=== PATIENT | male | born 2000 | race Caucasian/White ===

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

== ENCOUNTER 2019-01-25 12:28 | Emergency (ER) | payer BC ==
[2019-01-25 13:05] VITALS: BP 128/64
--- NOTE | 2019-01-25 13:40 | UC ---
UC General HPI - HPI Summary HPI Summary: 18-year-old male comes in with a chief complaint of bipolar. Patient has a long history of being bipolar with primarily aggressive phases. He was living in [place] and bit on about different medications that he doesn't really remember which ones. He does know he is on gabapentin any did not like the side effects and also lithium he did not like. Last 2 days he's been feeling more aggressive although he says he feels much call her at this time. Denies any suicidality or wanting to hurt anybody. He has a counselor locally but does not have a physician. - History of Current Complaint Chief Complaint: UCGeneralIllness Stated Complaint: PERSONAL Time Seen by Provider: 01/25/19 13:02 Pain Intensity: 2 - Allergy/Home Medications Allergies/Adverse Reactions: Allergies Allergy/AdvReac Type Severity Reaction Status Date / Time morphine Allergy Shortness Verified 01/25/19 12:52 of Breath Penicillins Allergy Rash Verified 01/25/19 12:52 PMH/Surg Hx/FS Hx/Imm Hx Previously Healthy: Yes Psychological History: Bipolar Disorder Other History Of: Negative For: Anticoagulant Therapy - Surgical History Surgical History: Yes Surgery Procedure, Year, and Place: eye surgeries, both eyes, for amblyopia 2003 and 2010. NASAL SX. HERNIA REPAIR. FB right 3rd finger - Family History Known Family History: Positive: None - Social History Alcohol Use: Weekly Substance Use Type: Marijuana Substance Use Comment - Amount & Last Used: daily Smoking Status (MU): Light Every Day Tobacco Smoker Type: Cigarettes Amount Used/How Often: 1/2/PPD Household Exposure Type: Cigarettes - Immunization History Most Recent Influenza Vaccination: MAY 2015 Most Recent Pneumonia Vaccination: NONE Vaccination Up to Date: Yes Review of Systems All Other Systems Reviewed And Are Negative: Yes Constitutional: Positive: Negative Skin: Positive: Negative Eyes: Positive: Negative ENT: Positive: Negative Respiratory: Positive: Negative Cardiovascular: Positive: Negative Gastrointestinal: Positive: Negative Motor: Positive: Negative Neurovascular: Positive: Negative Musculoskeletal: Positive: Negative Neurological: Positive: Negative Psychological: Positive: Other - SEE HPI Physical Exam Triage Information Reviewed: Yes Appearance: Well-Appearing, No Pain Distress, Well-Nourished Vital Signs: Initial Vital Signs Temp 98.4 F 01/25/19 12:52 Pulse 64 01/25/19 12:52 Resp 18 01/25/19 12:52 BP 128/64 01/25/19 12:52 Pulse Ox 97 01/25/19 12:52 Vital Signs Reviewed: Yes Eye Exam: Normal Eyes: Positive: Conjunctiva Clear Neck: Positive: Supple Respiratory: Positive: No respiratory distress Musculoskeletal Exam: Normal Musculoskeletal: Positive: Strength Intact, ROM Intact Neurological Exam: Normal Neurological: Positive: Alert, Muscle Tone Normal Psychological: Positive: Age Appropriate Behavior, Other: - THOUGHTS CLEAR. DENIES HI/SI. Skin Exam: Normal Course/Dx - Course Course Of Treatment: We discussed inpatient versus outpatient therapy for bipolar disorder. Patient stated he does not want inpatient therapy. At this time is not suicidal or homicidal. Overall in this patient encounter he did not appear to be acutely manic. He tells me does have a counselor locally. We discussed various treatment options for bipolar. Gave him references for the crisis hotline [facility] and also the family counseling services at [facility] and [facility]. There is options for pharmacotherapy of bipolar include valproate lithium and Seroquel and lamotrigine. I let the patient know he needs to find further help further outpatient treatment and that if he got worse at all is to go the emergency department. I chose lamotrigine 25 mg daily because it appears have a better safety profile than the other medications. Typically dropped to 50 mg a day after 2 weeks have her and keeping and at the lower dose at the help that it will help until he can find another provider. - Diagnoses Provider Diagnosis: Bipolar disorder Discharge - Sign-Out/Discharge Documenting (check all that apply): Patient Departure All imaging exams completed and their final reports reviewed: No Studies - Discharge Plan Condition: Stable Disposition: HOME Prescriptions: lamoTRIgine [Lamotrigine] 25 mg PO DAILY #30 tablet Patient Education Materials: Bipolar Disorder (ED) Forms: *Work Release Referrals: [facility] [Outside] [facility] [Outside] [facility] [Outside] Additional Instructions: FOLLOW UP WITH [facility], [facility] OR YOUR PRIMARY CARE DOCTOR. GO TO THE EMERGENCY DEPARTMENT IF YOUR CONDITION WORSENS; THOUGHT OF HURTING YOURSELF OR OTHERS, DEPRESSION, KATIE OR ANY QUESTIONS OR CONCERNS. - Billing Disposition and Condition Condition: STABLE Disposition: Home
== END 2019-01-25 13:55 | disposition home or self-care (01) ==
LOC: UCCORT 12:28
DX: F31.9 Bipolar disorder, unspecified (principal); F17.210 Nicotine dependence, cigarettes, uncomplicated
CPT/HCPCS: 99212; G0463